=== PATIENT | male | born 1955 | race Caucasian/White ===

== ENCOUNTER 2021-09-14 10:29 | Emergency (ER) | payer MEDICARE, MEDICAID ==
[~2021-09-14] VITALS: Wt 72.6 kg
[2021-09-14] MEDS ORDERED: FLOMAX0.4 MG PO (11:29)
[2021-09-14] MEDS ORDERED: MEDROL DOSEPAK4 MG PO (12:42)
== END 2021-09-14 12:48 | disposition home or self-care (01) ==
LOC: ED 10:29
DX: M25.511 Pain in right shoulder (principal); Z88.8 Allergy status to other drugs, medicaments and biological substances; Z79.899 Other long term (current) drug therapy